=== PATIENT | female | born 1975 | race Caucasian/White ===

== ENCOUNTER → 2023-10-11 | Outpatient (CLI) | payer SELFPAY ==
[2023-10-12 00:07] LABS: Cyclic Citrull Pep IgG Unit <1.5 U/mL (<=3.9); Cyclic Citrullinated Pep IgG Negative
[2023-10-12 01:12] LABS: DNA Double-Stranded Negative (Negative)
== END | disposition home or self-care (01) ==
LOC: LABWHC1 13:50
PROVIDERS: ATTEND Family Medicine
DX: E11.65 Type 2 diabetes mellitus with hyperglycemia (principal); M25.50 Pain in unspecified joint; R79.89 Other specified abnormal findings of blood chemistry
CPT/HCPCS: 36415; 80053; 82306; 83036; 84443; 86140; 86200; 86225; 86431

== ENCOUNTER 2024-02-14 07:40 | Day surgery (SDC) | payer BC ==
[2024-02-14] MEDS: LACTATED RINGERS 1,000 ML IV SCH (08:18)
[2024-02-14 08:25] LABS: Glucose,Whole Blood 157 mg/dL (70-110)
[2024-02-14 08:35] VITALS: PULSE 74; RESP 16; TEMP 97.4
[2024-02-14] MEDS ORDERED: PROPOFOL 10 MG/ML 20 ML VIAL IV ONE (08:37)
[2024-02-14] MEDS ORDERED: LIDOCAINE 2% (PF) 20 MG/ML 5 ML VIAL ONE (08:37)
[2024-02-14] MEDS ORDERED: fentaNYL (PF) 50 MCG/ML 2 ML AMP ONE (08:37)
--- NOTE | 2024-02-14 08:59 | P.PCN ---
Date of Procedure: 02/14/24 Procedure(s) Performed: Brief history: Patient is a pleasant 48-year-old white female scheduled for an elective upper endoscopy as well as colonoscopy as a part of evaluation of chronic intermittent abdominal pain associate with diarrhea for the last several months duration. Recently had an episode of severe nausea vomiting diarrhea and was hospitalized for 2 days and was treated with antibiotics and discharged home. Symptoms gradually improved. However she still has persistent left upper quadrant ab dominal pain with intermittent diarrhea for the last 3 to 4 years. Procedure performed: Esophagogastroduodenoscopy with biopsy Colonoscopy biopsy Preoperative diagnosis: Left-sided abdominal pain Chronic diarrhea Anesthesia: MAC Procedure: After informed consent was obtained from the patient was brought into the endoscopy unit and IV sedation was administered by anesthesia under continuous monitoring. Initially upper endoscopy was done. The Olympus GF 160 video endoscope was inserted inserted into the mouth and esophagus intubated without any difficulty and was gradually advanced into the stomach and duodenum and carefully examined. The bulb and second part of the duodenum appeared normal. Biopsies were done from the duodenum rule out celiac disease. The scope was then withdrawn into the stomach adequately insufflated with air and upon careful examination the antrum had mild gastritis and biopsies were done from this area. Mucosa of the body, cardia and fundus appeared normal. The scope was then withdrawn into the esophagus. The GE junction was located at 40 cm to the incisors. It appeared regular with no erythema erosions or ulcerations. Rest of the esophagus appeared normal. Patient tolerated the procedure well. At this time the patient continued to remain sedation. Initial digital rectal examination was normal. Olympus CF 160 video colonoscope was then inserted into the rectum and gradually advanced to the cecum without any difficulty. Careful examination was performed as the scope was gradually being withdrawn. The prep was excellent. The cecum, ascending colon, transverse colon, descending colon, sigmoid colon and rectum appeared normal. Biopsies were done from the ascending and descending colon rule out microscopic/collagenous colitis. Retroflexion was performed in the rectum and no lesions were noted. Patient tolerated the procedure well. Impression: 1. Upper endoscopy revealed mild antral gastritis but no evidence of esophagitis or peptic ulcer disease 2. Colonoscopy was within normal limits with no evidence of colorectal neoplasia Recommendations: Findings of this examination were discussed with the patient as well as her family. She was advised to follow-up with the biopsy results. Follow-up in the office in 3 to 4 weeks. Recommended repeat screening colonoscopy in 10 years.
[2024-02-14 09:32] VITALS: BP 134/84
[2024-02-14 10:32] LABS: Basophils % (A) 0 %; Eosinophils # (A) 0.2 k/uL (0-0.7); Eosinophils % (A) 3 %; HCT 45.3 % (34.0-46.0); HGB 15.2 gm/dL (11.4-16.0); Lymphocytes % (A) 28 %; MCH 30.4 pg (25.0-35.0); MCHC 33.5 g/dL (31.0-37.0); MCV 90.6 fL (80.0-100.0); Mean Platelet Volume 8.1; Monocytes # (A) 0.4 k/uL (0-1.0); Monocytes % (A) 6 %; Neutrophils # (A) 4.3 k/uL (1.3-7.7); Neutrophils % (A) 62 %; Platelet Count 235 k/uL (150-450); RDW 12.8 % (11.5-15.5)
[2024-02-14 10:55] LABS: ALT 73 U/L (4-34); African American GFR (CKD) >90 (>60 ml/min/1.73 sqM); Albumin 4.6 g/dL (3.5-5.0); Anion Gap 9 mmol/L; Blood Urea Nitrogen 8 mg/dL (7-17); C Reactive Protein <0.5 mg/dL (<1.0); Calcium 8.9 mg/dL (8.4-10.2); Carbon Dioxide 24 mmol/L (22-30); Chloride 106 mmol/L (98-107); Glucose 131 mg/dL (74-99); Non-African American GFR(CKD) >90 (>60 ml/min/1.73 sqM); Sodium 139 mmol/L (137-145); Total Bilirubin 0.9 mg/dL (0.2-1.3); Total Protein 7.5 g/dL (6.3-8.2)
[2024-02-14 11:12] LABS: AST 57 U/L (14-36); Potassium 4.3 mmol/L (3.5-5.1)
[2024-02-14 11:13] LABS: Alkaline Phosphatase 81 U/L (38-126)
[2024-02-14 15:20] LABS: Erythrocyte Sedimentation Rate 7 mm/Hr (0-20)
[2024-02-14 18:20] LABS: Gliadin AB IgA, Deaminated Negative (Negative); Gliadin AB IgA, Unit 8.5 U/mL; Gliadin AB IgG, Deaminated Negative (Negative); Gliadin AB IgG, Unit <0.4 U/mL
== END 2024-02-14 10:07 | disposition home or self-care (01) ==
LOC: ORWHC2ENDO 07:40
PROVIDERS: ATTEND Internal Medicine Gastroenterology
DX: K29.50 Unspecified chronic gastritis without bleeding (principal); K52.9 Noninfective gastroenteritis and colitis, unspecified; I10 Essential (primary) hypertension; K76.0 Fatty (change of) liver, not elsewhere classified; K21.9 Gastro-esophageal reflux disease without esophagitis; E11.9 Type 2 diabetes mellitus without complications; Z79.899 Other long term (current) drug therapy; Z88.0 Allergy status to penicillin; Z88.5 Allergy status to narcotic agent
CPT/HCPCS: 81025; 88305; 80053; 85652; 85025; 86140; 83516 ×4; 83036; 45380; 43239; J3010; J2704; J2001